=== PATIENT | male | born 1960 | race Caucasian/White ===

== ENCOUNTER 2024-09-09 06:58 | Inpatient (IN) | payer BC ==
[2024-09-09] MEDS: methylPREDNISolone Sodium Succinate 125 MG/2 ML SDV IVPUSH ONE (07:08)
[2024-09-09] MEDS: Albuterol/Ipratropium 3.0-0.5 MG/3 ML Neb Soln NEB ONE (07:08)
[2024-09-09 07:17] LABS: O2 DELIVERY DEVICE NASAL CANNULA
[2024-09-09] MEDS: Acetaminophen 500 MG Tab PO ONE (07:18)
[2024-09-09] MEDS: Sodium Chloride 0.9% 500 ML IV ONE (07:19)
[2024-09-09 07:25] LABS: BASOPHILS PERCENT AUTO 0.3 % (0.0-1.0); EOSINOPHILS PERCENT AUTO 0.1 % (1.0-3.0); HEMATOCRIT 38.1 % (40.0-54.0); HEMOGLOBIN 12.6 g/dL (14.0-18.0); MEAN CORPUSCULAR HEMOGLOBIN 30.7 pg (27.0-34.0); MEAN CORPUSCULAR HGB CONC 33.1 g/dL (33.0-35.0); MEAN CORPUSCULAR VOLUME 92.9 fL (80-100); MONOCYTES PERCENT AUTO 7.6 % (2-8); PLATELET COUNT,PLT 161 10^3/uL (150-450); WHITE BLOOD CELL COUNT,WBC 9.2 10^3/uL (5.0-10.0)
[2024-09-09 07:42] LABS: A/G RATIO 1.1; ALANINE AMINOTRANSFERASE,ALT 69 U/L (16-63); ALBUMIN 3.8 g/dL (3.4-5.0); ALKALINE PHOSPHATASE 71 U/L (46-116); ANION GAP 16.4 mEq/L (7-13); ASPARTATE AMNIOTRANSFERASE,AST 89 U/L (15-37); BILIRUBIN TOTAL 0.3 mg/dL (0.2-1.0); BLOOD UREA NITROGEN,BUN 11 mg/dL (7-18); BUN/CREATININE RATIO 10.3 (No establ ref range); CARBON DIOXIDE,CO2 25 mmol/L (21-32); CHLORIDE,CL 95 mmol/L (98-107); CREATININE 1.07 mg/dL (0.70-1.30); EST CRCL DRUG DOSING (CG) 73.91 mL/min; GLUCOSE RANDOM 83 mg/dL (70-99); MAGNESIUM 1.3 mg/dL (1.8-2.4); POTASSIUM,K 4.4 mmol/L (3.5-5.1); PROTEIN TOTAL,TP 7.4 g/dL (6.4-8.2); SODIUM,NA 132 mmol/L (136-145)
[2024-09-09 07:45] LABS: BICARBONATE,VENOUS 24 mmol/l (19-25); ESTIMATED GFR 78 mL/min (>=60); ETHANOL BLOOD MEDICAL < 3 mg/dL (0); PCO2 VENOUS 41 mmHg (41-51); PH,VENOUS 7.38 (7.31-7.41); PO2 VENOUS 54 mmHg (35-42)
[2024-09-09] MEDS: Magnesium Sulfate/Water Premix 2 GM in Premix Bag 1 BAG IV ONE (07:53)
[2024-09-09 07:55] LABS: B-TYPE NATRIURETIC PEPTIDE,BNP 21 pg/ml (0-100)
[2024-09-09 08:02] LABS: PROTHROMBIN TIME 10.3 SEC (9.0-12.0); PTT,PARTIAL THROMBOPLSTIN TIME 31.2 SEC (22.0-34.0)
[2024-09-09] MEDS: Albuterol 0.083% 2.5 MG/3 ML Neb Soln NEB ONE (08:09)
[2024-09-09] MEDS: Sodium Chloride 0.9% 1,000 ML IV ONE (08:10)
[2024-09-09] MEDS: Azithromycin 500 MG in Sodium Chloride 0.9% 250 ML IV ONE (08:52)
[2024-09-09] MEDS: cefTRIAXone 1 GM Vial IVPUSH ONE (08:52)
[2024-09-09] MEDS ORDERED: Acetaminophen 325 MG Tab PO PRN (09:33)
[2024-09-09] MEDS ORDERED: Ondansetron 4 MG/2 ML SDV IVPUSH PRN (09:33)
[2024-09-09] MEDS ORDERED: Docusate Sodium 100 MG Cap PO PRN (09:33)
[2024-09-09] MEDS ORDERED: oxyCODONE 5 MG Tab PO PRN (09:33)
[2024-09-09] MEDS: Albuterol/Ipratropium 3.0-0.5 MG/3 ML Neb Soln NEB PRN (10:49)
[2024-09-09] MEDS: Iopamidol 755 Mg/ML 100 ML Bottle IVPUSH ONE (11:50)
[2024-09-09] MEDS: Oseltamivir 75 MG Cap PO SCH (11:53)
[2024-09-09] MEDS: Sodium Chloride 0.9% 1,000 ML IV SCH (11:54)
[2024-09-09] MEDS: Azithromycin 500 MG in Sodium Chloride 0.9% 250 ML IV SCH (12:33)
[2024-09-09] MEDS: methylPREDNISolone Sodium Succinate 40 MG/1 ML SDV IVPUSH SCH (16:14)
[2024-09-09] MEDS ORDERED: Glucagon,Human Recombinant 1 MG Vial IM PRN (16:52)
[2024-09-09] MEDS ORDERED: 50% Dextrose in Water 50 ML Syringe IVPUSH PRN (16:52)
[2024-09-09] MEDS: Insulin Lispro 100 Units/ML 3 ML Vial SUBCUT SCH (17:59)
[2024-09-09] MEDS ORDERED: Non-Formulary Medication 1 Each (Clobetasol [Clobetasol 0.05%] 30 GM Tube) TOP PRN (22:21)
[2024-09-10] MEDS: Simvastatin 10 MG Tab PO SCH (00:30)
[2024-09-10 06:46] LABS: ANION GAP 10.9 mEq/L (7-13); CREATININE 1.2 mg/dL (0.70-1.30); EST CRCL DRUG DOSING (CG) 65.9 mL/min; POTASSIUM,K 4.9 mmol/L (3.5-5.1)
[2024-09-10 06:47] LABS: HEMATOCRIT 38.9 % (40.0-54.0); HEMOGLOBIN 12.3 g/dL (14.0-18.0); MEAN CORPUSCULAR HEMOGLOBIN 30.7 pg (27.0-34.0); MEAN CORPUSCULAR HGB CONC 31.6 g/dL (33.0-35.0); RED BLOOD CELL COUNT 4.01 10^6/uL (4.6-6.2)
[2024-09-10] MEDS: glipiZIDE 5 MG Tab.ER PO SCH (09:05)
[2024-09-10] MEDS: Lisinopril 20 MG Tab PO SCH (09:06)
[2024-09-10] MEDS: cefTRIAXone 1 GM Vial IV SCH (09:07)
[2024-09-10] MEDS: Azithromycin 500 MG in Sodium Chloride 0.9% 250 ML IV SCH (09:07)
[2024-09-10] MEDS: MONTELUKAST 4 MG PO SCH (13:53)
[2024-09-10] MEDS: Non-Formulary Medication 1 Each (Metformin [Glucophage] 850 MG Tablet) PO SCH (13:53)
[2024-09-10] MEDS: metFORMIN 500 MG Tab PO SCH (13:56)
[2024-09-10] MEDS ORDERED: Ibuprofen 800 MG Tab PO PRN (14:24)
[2024-09-10] MEDS: Sodium Chloride 0.9% 10 ML Syringe FLUSH PRN (19:35)
[2024-09-10] MEDS: Montelukast 10 MG Tab PO SCH (21:09)
[2024-09-11 16:19] LABS: BASOPHILS PERCENT AUTO 0.1 % (0.0-1.0); HEMATOCRIT 37.8 % (40.0-54.0); HEMOGLOBIN 11.8 g/dL (14.0-18.0); LYMPHOCYTES PERCENT AUTO 5.2 % (20.5-50.1); MEAN CORPUSCULAR HEMOGLOBIN 30.3 pg (27.0-34.0); MEAN CORPUSCULAR HGB CONC 31.2 g/dL (33.0-35.0); MEAN CORPUSCULAR VOLUME 97.2 fL (80-100); MONOCYTES PERCENT AUTO 3.9 % (2-8); NEUTROPHILS PERCENT AUTO 90.8 % (42.2-75.2); PLATELET COUNT,PLT 149 10^3/uL (150-450); RED BLOOD CELL COUNT 3.89 10^6/uL (4.6-6.2)
[2024-09-11 16:34] LABS: ANION GAP 13.2 mEq/L (7-13); CREATININE 1.31 mg/dL (0.70-1.30); EST CRCL DRUG DOSING (CG) 60.37 mL/min; POTASSIUM,K 5.2 mmol/L (3.5-5.1)
[2024-09-12] MEDS: Azithromycin 500 MG Vial ONE (09:55)
== END 2024-09-12 10:45 | disposition home or self-care (01) | DRG 139 ==
LOC: DL.ED 06:58 → DL.MS 08:47 → DL.ED 09:16 → DL.MS 09:18 → OBSVTOIN 09-10 08:47
PROVIDERS: ADMIT Internal Medicine; ATTEND Internal Medicine
DX: J10.08 Influenza due to other identified influenza virus with other specified pneumonia (principal); J96.01 Acute respiratory failure with hypoxia; J44.0 Chronic obstructive pulmonary disease with (acute) lower respiratory infection; J44.1 Chronic obstructive pulmonary disease with (acute) exacerbation; J18.0 Bronchopneumonia, unspecified organism; F17.210 Nicotine dependence, cigarettes, uncomplicated; F15.90 Other stimulant use, unspecified, uncomplicated; E11.9 Type 2 diabetes mellitus without complications; E86.0 Dehydration; E83.42 Hypomagnesemia; R79.89 Other specified abnormal findings of blood chemistry; J43.9 Emphysema, unspecified; Z90.49 Acquired absence of other specified parts of digestive tract
CPT/HCPCS: 36415; 71275; 80048; 80053; 80307; 82803; 82947; 83735; 83880; 84484; 85025; 85027; 85379; 85610; 85730; 87040; 87070; 87205; 87428-QW; 93005; 93010; 94640; 96361; 96365; 96367; 96375; 96376; 99223; 99232; 99239; 99285; 99285-25; A9270-GY; G0378; J0456; J0696; J1815-GY; J2919; J3475; J7030; J7040; J7050; J7613-GY; J7620-GY